=== PATIENT | female | born 1975 | race Two or more races ===

== ENCOUNTER 2022-02-25 14:44 | Emergency (ER) | payer OTHER ==
[~2022-02-25] VITALS: Ht 170.2 cm; Wt 82.6 kg
[~2022-02-25 14:44] MED LIST: NO TOMA MEDICAMENTOS
== END 2022-02-25 20:21 | disposition home or self-care (01) ==
LOC: ER 14:44
DX: U07.1 COVID-19 (principal); Z72.0 Tobacco use

== ENCOUNTER 2022-04-23 07:38 | Outpatient (CLI) | payer OTHER | END 2022-04-23 07:46 | disposition home or self-care (01) | LOC: LAB 07:38 | DX: Z20.822 Contact with and (suspected) exposure to COVID-19 (principal) ==

== ENCOUNTER → 2022-06-03 07:05 | Outpatient (CLI) | payer OTHER | END | disposition home or self-care (01) | LOC: LAB 07:05 | PROVIDERS: ATTEND Otolaryngology | DX: Z20.822 Contact with and (suspected) exposure to COVID-19 (principal) ==

== ENCOUNTER → 2022-07-01 11:06 | Outpatient (CLI) | payer OTHER | END | disposition home or self-care (01) | LOC: LAB 11:06 | PROVIDERS: ATTEND Surgery | DX: K56.600 Partial intestinal obstruction, unspecified as to cause (principal); R93.5 Abnormal findings on diagnostic imaging of other abdominal regions, including retroperitoneum ==

== ENCOUNTER 2023-08-12 10:40 | Outpatient (CLI) | payer OTHER | END 2023-08-12 10:48 | disposition home or self-care (01) | LOC: MAMO-SONO 10:40 | PROVIDERS: ATTEND General Practice | DX: N60.01 Solitary cyst of right breast (principal); N60.02 Solitary cyst of left breast; J44.9 Chronic obstructive pulmonary disease, unspecified; R06.02 Shortness of breath; F17.218 Nicotine dependence, cigarettes, with other nicotine-induced disorders; Z12.31 Encounter for screening mammogram for malignant neoplasm of breast ==

== ENCOUNTER 2023-08-12 11:53 | Outpatient (CLI) | payer OTHER ==
[2023-08-12 12:21] LABS: URINE APPEARANCE Clear; URINE BILIRRUBIN Negative (NEGATIVE); URINE BLOOD Negative; URINE COLOR Yellow; URINE GLUCOSE Negative (NEGATIVE); URINE LEUKOCYTE Negative; URINE NITRATE Negative; URINE PROTEIN Negative (NEGATIVE); URINE UROBILINOGEN 0.2 E.U./dl
[2023-08-12 12:25] LABS: URINE EPITHELIAL CELLS 79.4 uL (0.0-38.8); URINE RBC 3.8 uL (0.0-20.8)
[2023-08-12 13:00] LABS: CALCIUM 9.2 mg/dL (8.5-10.1); CHOL HDL RATIO 3.5 (0-5.0); CREATININE SERUM 0.63 mg/dL (0.55-1.02); GFR 100.86; POTASSIUM 4.12 mEq/L (3.5-5.1)
[2023-08-12 13:59] LABS: URINE CRYSTALS NEGATIVE /HPF; URINE MUCUS SCANT; URINE YEAST NEGATIVE /hpf
== END 2023-08-12 11:59 | disposition home or self-care (01) ==
LOC: LAB 11:53
PROVIDERS: ATTEND General Practice
DX: R30.0 Dysuria (principal); E78.5 Hyperlipidemia, unspecified; Z12.11 Encounter for screening for malignant neoplasm of colon

== ENCOUNTER → 2023-10-01 | Emergency (ER) | payer OTHER ==
[~2023-10-01] VITALS: Ht 170.2 cm; Wt 83.9 kg
== END | disposition home or self-care (01) ==
LOC: ER 16:52
DX: N30.80 Other cystitis without hematuria (principal)

== ENCOUNTER 2024-12-23 06:36 | Outpatient (CLI) | payer OTHER ==
[2024-12-23 08:15] LABS: ALBUMIN 3.4 gm/dL (3.4-5.0); BILIRUBIN TOTAL 0.29 mg/dL (0.3-1.2); CALCIUM 8.7 mg/dL (8.5-10.1); CHOL HDL RATIO 3.2 (0-5.0); CREATININE SERUM 0.56 mg/dL (0.55-1.02); GFR 114.59; GLOBULINA 3.3 G/DL (2.4-3.5); POTASSIUM 4.24 mEq/L (3.5-5.1); TOTAL PROTEIN 6.7 gm/dL (6.4-8.2)
== END 2024-12-23 06:39 | disposition home or self-care (01) ==
LOC: LAB 06:36
DX: E03.5 Myxedema coma (principal)

== ENCOUNTER 2024-12-23 07:04 | Outpatient (CLI) | payer OTHER | END 2024-12-23 07:14 | disposition home or self-care (01) | LOC: MAMO-SONO 07:04 | PROVIDERS: ATTEND General Practice | DX: N60.01 Solitary cyst of right breast (principal); N60.02 Solitary cyst of left breast; J44.9 Chronic obstructive pulmonary disease, unspecified; F17.218 Nicotine dependence, cigarettes, with other nicotine-induced disorders; R06.02 Shortness of breath; R05.3 Chronic cough ==